=== PATIENT | male | born 1945 | race Caucasian/White ===

== ENCOUNTER 2017-01-20 01:47 | Inpatient (IN) | payer OTHER, MEDICARE ==
[~2017-01-20] VITALS: Ht 185.4 cm; Wt 89.4 kg
[~2017-01-20 01:47] MED LIST: FLUOXETINE HCL10 M2 PO; LISINOPRIL20 M1 PO
--- NOTE | 2017-01-20 10:56 | Admission Core Measures ---
Admission Meds I reviewed the following Meds: Current Medications Sig/Nicole Start time Last Medication Dose Stop Time Status Admin Acetaminophen 975 MG ONCE 01/20 NR (Tylenol) 01/20 2359 Cefazolin Sodium 2,000 MG ONCE 01/20 NR (Kefzol-Ancef Inj) 01/20 2359 Oxycodone HCl 10 MG ONCE 01/20 NR (Roxicodone) 01/20 2359 Acute Coronary Syndrome Inclusion Criteria ACS Diagnosis No Inpatient Core Measures LDL Reminder: If No, please order W/I first 24hr of stay Congestive Heart Failure Inclusion Criteria CHF Diagnosis No Cerebrovascular accident Inclusion Criteria CVA/TIA Diagnosis No Inpatient Core Measures Bedside Swallow Eval Reminder: If BSE failed, place ST order Antithrombotic Reminder: Order Antithrombotic Medication by end of day 2 Antithrombotic Reminder: Document Reason Antithrombotic Not ordered by end of day 2 AFIB/Flutter Reminder: If Present, add to problem list AFIB/Flutter Reminder: Order Anticoag Medication for pts with AFIB/Flutter Atherosclerosis Reminder: If Present, add to problem list LDL Reminder: If No, please order W/I first 24hr of stay PT Order Reminder: If No, please order Venous thromboembolism Inpatient Core Measures VTE Risk Factors: Age > 40, Surgery No [facility] VTE prophylaxis d/t No contraindications No VTE Pharm Prophylaxis d/t No contraindications Inclusion Criteria - Per Current guidelines, there needs to be overlap - treatment for the first 5 days of Warfarin therapy. - Parenteral Anticoagulation (IV or SC) needs to be - given along with Warfarin therapy. VTE Diagnosis No VTE Type NONE VTE Confirmed by (Test) NONE Problem List As ranked by this Provider includes Assessment & Plan 1. Unilateral primary osteoarthritis, right hip HOME MEDS Home Med List Fluoxetine HCl 10 MG CAPSULE 1 CAP PO DAILY ANXIETY (Reported) Lisinopril 20 MG TABLET 1 TAB PO DAILY HTN (Reported)
--- NOTE | 2017-01-20 11:01 | Patient Discharge Instructions ---
Discharge Instructions General Discharge Information You were seen/treated for: Right hip pain related to unilateral primary osteoarthritis You had these procedures: Right total hip replacement Watch for these problems: Increasing pain despite the use of pain medication. Increasing redness, warmth or swelling. Drainage of any type from incision. Inability to bear weight on operative leg. Persistent nausea and vomiting. Fever greater than 101.5 degrees. Do not soak the wound: Yes No bath, but you may shower: Yes Other wound care: Please keep wound clean and dry. No ointments or lotions of any type on or near incision at any time. No exceptions. Your dressing will be changed by your nurse on the second day after your surgery. Daily dry dressing changes are recommended each day thereafter. Do not soak your wound in a bath at any time until otherwise indicated by Dr. Jones. You may shower, please dry wound immediately after shower with a clean towel. Special Instructions: Aspirin: You are taking this medication to help prevent the development of blood clots. Please take with food to protect your stomach lining. Please take as directed. Constipation: Pain medication can be very constipating. Dr. Jones has recommended that you take Colace and miralax each day. You may discontinue this medication if you develop loose stool or diarrhea. If you wish to continue this medication, it is available over the counter. If you are unable to move your bowels after several days, if you are unable to pass gas and are developing bloating, nausea, or vomiting as a result, please contact your doctor. Diet Continue normal diet: Yes Recommended Diet: Regular Activity Full Activity/No Limits: No Activity Self Limited: Yes Pounds, do NOT lift more than: 10 Activity Limited to: Weight bear as tolerated Acute Coronary Syndrome Inclusion Criteria At DC or during hospital stay patient has or had the following: ACS DIAGNOSIS No Discharge Core Measures Meds if any: Prescribed or Continued at Discharge Meds if any: NOT Prescribed or Continued at Discharge Congestive Heart Failure Inclusion Criteria At DC or during hospital stay patient has or had the following: CHF DIAGNOSIS No Discharge Core Measures Meds if any: Prescribed or Continued at Discharge Meds if any: NOT Prescribed or Continued at Discharge Cerebrovascular accident Inclusion Criteria At DC or during hospital stay patient has or had the following: CVA/TIA Diagnosis No Discharge Core Measures Meds if any: Prescribed or Continued at Discharge Meds if any: NOT Prescribed or Continued at Discharge Venous thromboembolism Inclusion Criteria VTE Diagnosis No VTE Type NONE VTE Confirmed by (Test) NONE Discharge Core Measures - Per Current guidelines, there needs to be overlap - treatment for the first 5 days of Warfarin therapy. - If discharged on Warfarin prior to 5 days of - overlap therapy, the patient will need to be - assessed for post discharge needs including - *Post discharge parental anticoagulation - *Warfarin and/or parental anticoagulation education - *Follow up date to check INR post discharge At least 5 days overlap therapy as Inpatient No Meds if any: Prescribed or Continued at Discharge Note: Overlap Therapy is Warfarin and Anticoagulant Meds if any: NOT Prescribed or Continued at Discharge
--- NOTE | 2017-01-20 11:03 | Surgical Discharge Summary ---
Visit Information Visit Dates Admission Date: 01/20/17 Discharge Date: 01/24/17 History of Present Illness Chief Complaint: Right hip pain related to unilateral primary osteoarthritis Surgical History Pertinent Surgical History: non-contributory Review of Systems: See H&P Hospital Course Course Attending Physician: RENE AYON MD Primary Care Physician: MATTI STATON,[facility] Course: Patient was admitted to the hospital for an elective total joint replacement. The procedure was tolerated well and the patient was transferred to a general surgical floor. Diet was advanced and tolerated and the patient voided spontaneously. The patient was evaluated and treated by physical therapy. The patients post-operative course was complicated by confusion, anxiety, and delirium. He offered a history of alcohol abuse during his hospitalization, for which our CIWA protocol with a low dose ativan scale was initiated. The family reported the patient hasn't drank alcohol in over a year. They were concerned about the ativan making his confusion worse, since this apparently had happened during a previous hospitalization at [facility]. They believe the patient was recalling his history of alcohol use, that he had in his past over a year ago/ With this information, the ativan and ciwa monitoring was stopped. A bus driver/monitor was required briefly for unsafe attempts at getting out of bed during episodes of his confusion / delirium. was consulted for co- management of these issues, with recommendations followed. On POD #4 his confusion/delirium resolved and he was stable for discharge home with 24 hour home care services. He will follow up with Dr. Ayon as per usual. Complications: none Allergies: Coded Allergies: No Known Allergies (01/10/17) Disposition Summary Disposition Principal Diagnosis: Right hip unilateral primary osteoarthritis Additional Diagnosis: post-operative confusion / delirium / agitation, likely alcohol abuse related Discharge Disposition: home health services Discharge Instructions General Discharge Information Code Status: Full Code Patient's Diet: Regular, advance as tolerated Patient's Activity: WBAT, rolling walker assistance Follow-Up Instructions/Appts: Follow up with Dr. Ayon in 6 weeks from date of surgery. Please call his office to arrange and/or confirm this appointment. Medications at Discharge Discharge Medications: Continue taking these medications: Lisinopril (Lisinopril) 20 MG TABLET 1 Tablet ORAL DAILY Fluoxetine HCl (Fluoxetine HCl) 10 MG CAPSULE 1 Capsule ORAL DAILY Tamsulosin HCl (Flomax) 0.4 MG CAP.ER.24H 1 Capsule ORAL DAILY Start taking the following new medications: Aspirin (Ecotrin*) 325 MG TABLET.DR 1 Tablet ORAL TWICE DAILY Qty = 60 No Refills Docusate Sodium (Colace) 100 MG CAPSULE 1 Capsule ORAL TWICE DAILY Qty = 14 No Refills Instructions: DISCONTINUE USE IF YOU DEVELOP LOOSE STOOL OR DIARRHEA Polyethylene Glycol 3350 (Miralax) 17 GRAM POWD.PACK 1 Packet ORAL DAILY Qty = 7 No Refills Instructions: dissolve in water, DISCONTINUE USE IF YOU DEVELOP LOOSE STOOL OR DIARRHEA Acetaminophen (Tylenol Extra Strength) 500 MG TABLET 1 Tablet ORAL EVERY 4-6 HOURS NEEDED as needed for pain control Days = 14 No Refills Copies To: MATTI STATON,NEIL
[2017-01-20] MEDS ORDERED: MIRALAX17 G1 PO (11:05)
[2017-01-20] MEDS ORDERED: COLACE100 M1 PO (11:05)
[2017-01-20] MEDS ORDERED: MS CONTIN15 M2 PO (11:05)
[2017-01-20] MEDS ORDERED: DILAUDID2 M1 PO (11:05)
[2017-01-20] MEDS ORDERED: ASPIRIN EC325 M2 PO (11:05)
--- NOTE | 2017-01-20 14:58 | RADIOLOGY REPORT ---
EXAMINATION: XR HIP, RIGHT CLINICAL INFORMATION: Postoperative right total hip arthroplasty. COMPARISON: None TECHNIQUE: Two views of the right hip. FINDINGS: Immediate postoperative changes with metallic acetabular, femoral head, and proximal femoral components appear intact without evidence of immediate complication. IMPRESSION: Postoperative changes as noted.
--- NOTE | 2017-01-20 15:04 | Operative Report ---
Operative/Inv Procedure Report Surgery Date: 01/20/17 Name of Procedure: Right total hip replacement Pre-Operative Diagnosis: Primary right hip DJD Post-Operative Diagnosis: Same Estimated Blood Loss: 250 Surgeon/Embosser Apprentice: GABO STATON,RENE Sparks Anesthesia: general endotracheal tube Operative/Procedure Note Note: Description of Procedure: The patient was taken to the operating room and positively identified. After induction of general anesthesia and administration of appropriate pre-operative antibiotics, the patient was positioned supine on the operating room table and all bony prominences were well padded. After performing a surgical timeout, the right lower extremity was prepped and draped in the usual sterile fashion. A direct anterior approach was made to the right hip. The incision was carried sharply through superficial soft tissues to the level of the fascia. Meticulous hemostasis was maintained with Bovie electocautery. The fascia over the tensor fascia rebekah muscle was opened sharply and the interval between the TFL and the sartorius was entered bluntly taking care to stay lateral to the lateral femoral cutaneous nerve. Retractors were placed around the femoral neck and the pericapsular fat was identified. The ascending branches of the lateral femoral circumflex vessels were identified and carefully coagulated. The pericapsular fat and anterior capsule were then resected. A napkin ring osteotomy was performed and the femoral head was removed without difficulty. Attention was then turned to the acetabulum. After appropriate placement of retractors, the acetabulum was exposed. Soft tissue was cleaned from the acetabular margin and notch. Overhanging osteophytes were removed and the teardrop was exposed. The acetabulum was then sequentially reamed to accept a 64 mm Honorio Tritanium hemispherical cluster hole shell. This was impacted into place in the appropriate position and fitted with a 36 mm Trident X3 zero degree polyethylene insert. Attention was then turned to the femur. After performing the appropriate ligament releases, the proximal femur was exposed. It was then sequentially broached to accept a size 8 Honorio accolade 2 stem. This was trialed for leg length and stability. The trial component was removed and the final component was impacted into place. The trunnion was carefully cleaned and fit with a 36 mm, +0 Biolox delta ceramic femoral head. The hip was reduced and put through a full range of motion and found to be stable. The articular space was then irrigated with sterile saline. The periarticular soft tissues were infilitrated with Marcaine. The fascial layer was closed with interrupted #1 vicryl suture and the skin was re-approximated with interrupted 2 -0 vicryl. The skin was closed with a running 3-0 V-Lock suture. Steri-strips and a sterile dressing were applied. The patient was awakened and taken to the recovery room in satisfactory condition.
[2017-01-20 16:25] VITALS: BP 142/70
--- NOTE | 2017-01-20 16:25 | NUR ---
AT THIS TIME PT ARRIVED TO ROOM 201 FROM THE PACU, PT AMBULATED WITH PT FROM THE BED TO THE STRETCHER AX1 W/RW, PT A/O/VX3, ON RA, DENIES SOB, DENIES CP, VSS, DSG TO R HIP C/D/I, PT C/O 7 OUT OF 10 PAIN AT THIS TIME, MEDICATED WITH PRN PAIN MED, SKIN INTACT, DTV BETWEEN 1739 AND 1939, SAFETY MAINTAINED, NEEDS WITHIN REACH
--- NOTE | 2017-01-20 17:44 | PN- Orthopedic ---
Subjective Subjective: Patient reports feeling anxious about process in general and being here with out his family, does not have any specific concerns at the moment. States that he has a history of anxiety from time to time. He feels that his pain is controlled presently. He denies chest pain, shortness of breath and difficulty breathing. Denies nausea and vomitting. Is sitting up at bedside. Has not ambulated. Has not voided. Objective Vital Signs and I&Os Vital Signs Date Time Temp Pulse Resp B/P B/P Pulse O2 O2 Flow FiO2 Mean Ox Delivery Rate 01/20 1625 97.6 69 18 142/70 95 Room Air Physical Exam: General: Alert and oriented x3, no acute distress, sitting calmly on bed with feet dangling. Cardiac: RRR, s1s2 Pulmonary: CTA bilaterally ABD: non-tender, non-distended Extremities: Moves all extremities, distal sensation intact. Motor 5/5 in plantar and dorsi flexion. Skin warm and well perfused. DP pulses palpable bilaterally. Bilateral calves soft and non-tender. Surgical site: Right hip: Dressing dry and intact, thigh compartment soft, no surrounding ecchymosis or erythema noted. Assessment/Plan Assessment/Plan This is a 71 year old male, POD 0, s/p R THR. PMH significant for anxiety, depression and hypertension. Presently feeling anxious, states that he is nervous about the process in general and the fact that he is in a hospital without family at bedside. -Reassurance given regarding his overall safety while in hospital, presence of and access to staff that will be providing care around the clock, and progress made thus far in recovery process. Patient responded well, states he is feeling better. RN stayed in room and continued to reassure him that she will be checking on him frequently and provided thorough instructions regarding incentive spirometry to assist patient with deep breathing exerciese. -OOB, can wbat -ABX ppx: Cefazolin 2 grams for 2 additional doses -DVT ppx: ASA 325 bid -Diet: Regular, advance as tolerated -Bowel regimen: Colace bid, miralax daily -prn ativan to be ordered for anxietry -pain regimen to include dilaudid, morphine and iv tylenol -Will d/w Dr. Jones Core Measures/Miscellaneous Venous Thromboembolism VTE Risk Factors: Age > 40, Surgery VTE Contraindications: No Contraindications VTE Diagnosis: No VTE Type: NONE VTE Confirmed by (Test): NONE Beta Ellis Is Beta Ellis a Home Med? No Antibiotics Is Patient on Antibiotics? Yes If Yes: prophylaxis
[2017-01-20 18:43] VITALS: BP 142/72
--- NOTE | 2017-01-20 19:47 | NUR ---
NURSING NOTE; PT DTV BETWEEN 1739 AND 1939, PT UNABLE TO VOID AT THIS TIME, PER PT, "I DO NOT WANT TO BE STRAIGHT CATHED", SURGICAL PA #[id number] AWARE, NO FURTHER ORDERS AT THIS TIME, SAFETY MAINTAINED, NEEDS WITHIN REACH
[2017-01-20 22:57] VITALS: BP 132/61
--- NOTE | 2017-01-21 01:15 | NUR ---
LATE ENTRY NURSING NOTE: LEVI PREVIOUSLY A&OX3, AT THIS TIME PATIENT IS ALERT AND ORIENTED TO SELF ONLY. NO C/O PAIN ALTHOUGH PT IS ANXIOUS AT BASELINE. IV ATIVAN PREVIOUSLY GIVEN BY THIS RN AT 0000 PER EMAR. PT IS RESTING IN BED, NO ACUTE DISTRESS, NEEDS IN REACH AND SAFEY MAINTAINED. BED ALARM IN PLACE. SURGICAL LIBRADO NORIEGA MADE AWARE OF ABOVE; NO FURTHER ORDERS AT THIS TIME. WILL CONTINUE TO MONITOR.
[2017-01-21 01:20] VITALS: BP 152/68
[2017-01-21 04:42] VITALS: BP 150/62
[2017-01-21] MEDS ORDERED: FLOMAX0.4 M1 PO (07:12)
--- NOTE | 2017-01-21 07:12 | PN- Orthopedic ---
Subjective Subjective: The patient is seen this morning postoperatively day #1. He reports that his pain is under adequate control of some complaints the current time. Per nursing staff he needed to be straight cathed last night and has yet to void this morning. He also appeared somewhat confused earlier this morning but currently seems appropriate. The patient also takes Flomax at home which will be reordered this morning. Objective Vital Signs and I&Os Vital Signs Date Time Temp Pulse Resp B/P B/P Pulse O2 O2 Flow FiO2 Mean Ox Delivery Rate 01/21 0442 98.1 78 20 150/62 95 Room Air 01/21 0120 98.2 65 22 152/68 94 Room Air 01/20 2257 98.4 68 18 132/61 91 Room Air 01/20 1843 98.5 79 18 142/72 92 Room Air 01/20 1625 97.6 69 18 142/70 95 Room Air Intake & Output 01/21 0800 / 0000 07/10 1600 / 0800 07 0000 07/09 1600 Intake Total 1000 Output Total Balance 1000 Intake, IV 600 Intake, Oral 400 Patient 197 lb Weight Weight Reported by Patient Measurement Method Physical Exam: Gen.: Alert and in no obvious distress Skin: Warm and dry Abdomen: Soft, nontender, nondistended, bowel sounds positive. Extremities: Bilateral extremities are warm without calf tenderness or significant edema. Gross motor and sensory were intact. Right hip surgical dressing is clean, dry, and intact. Assessment/Plan Assessment/Plan Assessment: 71-year-old male status post right hip total arthroplasty postoperative day 1. The patient is progressing as expected and his pain is under adequate control. He is having issues voiding and his Flomax will be restarted today. Plan: Restart Flomax and monitor for void Strict I's and O's Out of bed with physical therapy Follow-up morning laboratory studies Keep IV fluids until void Continue current pain regiment GI and DVT prophylaxis Core Measures/Miscellaneous Venous Thromboembolism VTE Risk Factors: Age > 40, Surgery VTE Contraindications: No Contraindications VTE Diagnosis: No VTE Type: NONE VTE Confirmed by (Test): NONE Beta Ellis Is Beta Ellis a Home Med? No Antibiotics Is Patient on Antibiotics? No
--- NOTE | 2017-01-21 07:29 | PN- Student ---
PAWAN STRAUSS 01/21/17 0721: Subjective Subjective: Patient currently trying to void. Is comfortable otherwise. No acute events overnight. Denies pain, n/v, SOB, chest pain, headaches or dizziness. Anxiety has decreased significantly since yesterday. Has been OOB to bathroom since last night but no bm and not able to void yet. Objective Objective: Vital Signs Result Date Time Pulse Ox 95 01/21 442 B/P 150/62 01/21 442 O2 Delivery Room Air 01/21 442 Temp 98.1 01/21 442 Pulse 78 01/21 044 Resp 20 01/21 442 Intake & Output 01/21 0000 01/20 1600 01/20 0800 Intake Total 1000 Output Total Balance 1000 Intake, IV 600 Intake, Oral 400 Patient 197 lb Weight Weight Reported by Patient Measurement Method General: awake, alert, oriented, NAD Lungs: CTAB, no wheeze/rhonchi/rales Heart: S1 S2, RRR, no MRG Abdomen: soft, non-distended, normoactive bowel sounds, non-tender Extremities: mild tremor in hands on moving, gross motor/sensory function in tact, palpable distal pulses 2+, right hip dressing clean, dry and intact, mild ttp, no peripheral edema, no calf tenderness bilaterally Assessment/Plan Assessment: 71 y/o male POD #1 right total hip arthroplasty. Progressing as expected with adequately controlled pain. Still unable to void. Plan: Diet: regular Pain: continue current pain regimen GI and DVT ppx OOB and ambulate Monitor ability to void, consider tamsulosin Incentive Spirometry Strict I's and O's Will discuss with attending SUSY ESPARZA 01/21/17 0837: Assessment/Plan Plan: I have seen and examined the above patient's please refer to the previous note
[2017-01-21 08:32] LABS: ABSOLUTE BASOPHIL COUNT 0 /CUMM (0.0-0.2); ABSOLUTE EOSINOPHIL COUNT 0 /CUMM (0.0-0.7); ABSOLUTE GRANULOCYTE CT 10.4 /CUMM (1.4-6.5); ABSOLUTE LYMPH COUNT 0.8 /CUMM (1.2-3.4); ABSOLUTE MONOCYTE COUNT 1.3 /CUMM (0.10-0.60); BASOPHIL % 0.1 % (0.0-2.0); EOSINOPHIL % 0 % (0-5); GRANULOCYTE % 82.6 % (42.2-75.2); HEMATOCRIT 35.9 % (42-52); MEAN CORPUSCULAR HGB 28.7 PG (27.0-31.0); MEAN CORPUSCULAR HGB CONC 33.8 G/DL (33.0-37.0); MEAN CORPUSCULAR VOLUME 84.7 FL (80.0-94.0); MEAN PLATELET VOLUME 7.4 FL (7.4-10.4); PLATELET COUNT 197 /CUMM (130-400); RBC DISTRIBUTION WIDTH 15.1 % (11.5-14.5); RED BLOOD CELL CT 4.24 /CUMM (4.70-6.10); WHITE BLOOD CELL COUNT 12.6 /CUMM (4.8-10.8)
--- NOTE | 2017-01-21 09:10 | Cons- Medical ---
General Information and HPI Consulting Request Date of Consult: 01/21/17 Requested By: RENE AYON MD Reason for Consult: Medical comanagement Source of Information: patient, old records Exam Limitations: confusion History of Present Illness: 71-year-old male with history of hypertension, acid reflux, BPH is status post right hip total replacement postoperative day 1. From surgical point of view he has done well however on evaluation this morning patient appears delirious. Postoperatively he has only received single dose of Dilaudid about 4 mg at 4 PM yesterday. Allergies/Medications Allergies: Coded Allergies: No Known Allergies (01/10/17) Home Med List: Aspirin (Ecotrin*) 325 MG TABLET.DR 1 TAB PO BID ANTICOAGULATION Docusate Sodium (Colace) 100 MG CAPSULE 1 CAP PO BID CONSITPATION DISCONTINUE USE IF YOU DEVELOP LOOSE STOOL OR DIARRHEA Fluoxetine HCl 10 MG CAPSULE 1 CAP PO DAILY ANXIETY (Reported) Hydromorphone HCl (Dilaudid) 2 MG TABLET 1-2 TAB PO Q4-6 PRN PRN PAIN Lisinopril 20 MG TABLET 1 TAB PO DAILY HTN (Reported) Morphine Sulfate (Ms Contin) 15 MG TABLET.ER 1 TAB PO BID PAIN Polyethylene Glycol 3350 (Miralax) 17 GRAM POWD.PACK 1 PAC PO DAILY CONSTIPATION dissolve in water, DISCONTINUE USE IF YOU DEVELOP LOOSE STOOL OR DIARRHEA Tamsulosin HCl (Flomax) 0.4 MG CAP.ER.24H 1 CAP PO DAILY prostate (Reported) Current Medications: Current Medications Sig/Nicole Start time Last Medication Dose Route Stop Time Status Admin Acetaminophen 1,000 MG Q6 01/20 1800 AC 01/21 IV 01/21 1201 0531 Acetaminophen 0 .STK-MED ONE 01/20 1023 DC PO Acetaminophen 975 MG ONCE 01/20 0000 DC PO 01/20 2359 Aspirin 325 MG BID 01/20 2200 AC 01/21 PO 0901 Cefazolin Sodium 2 GM Q8H 01/20 2015 DC 01/21 N/A 1 UNIT IV 01/21 0444 0447 Cefazolin Sodium 2,000 MG ONCE 01/20 0000 DC IV 01/20 2359 Docusate Sodium 100 MG BID 01/20 2200 AC 01/21 PO 0901 Fentanyl Citrate 250 MCG .STK-MED ONE 01/20 1215 DC IM 01/20 1216 Fentanyl Citrate 100 MCG .STK-MED ONE 01/20 1120 DC IM 01/20 1121 Fluoxetine HCl 10 MG DAILY 01/21 1000 DC PO Fluoxetine HCl 10 MG DAILY 01/21 1000 AC 01/21 PO 0900 Hydromorphone HCl 2 MG Q4P PRN 01/20 1630 DC PO Hydromorphone HCl 4 MG Q4P PRN 01/20 1630 DC 01/20 PO 1649 Hydromorphone HCl 2 MG .STK-MED ONE 01/20 1551 DC IM 01/20 1552 Hydromorphone HCl 2 MG .STK-MED ONE 01/20 1524 DC IM 01/20 1525 Hydromorphone HCl 2 MG .STK-MED ONE 01/20 1438 DC IM 01/20 1439 Hydromorphone HCl 2 MG .STK-MED ONE 01/20 1415 DC IM 01/20 1416 Hydromorphone HCl 2 MG .STK-MED ONE 01/20 1216 DC IM 01/20 1217 Ketorolac 15 MG Q8P PRN 01/20 1630 AC Tromethamine IV 01/23 1625 Lisinopril 20 MG DAILY 01/21 1000 DC PO Lisinopril 20 MG DAILY 01/21 1000 AC 01/21 PO 0900 Lorazepam 1 MG Q4P PRN 01/20 1745 DC 01/20 IV 2339 Meperidine HCl 50 MG .STK-MED ONE 01/20 1424 DC IM 01/20 1425 Midazolam HCl 2 MG .STK-MED ONE 01/20 1120 DC IM 01/20 1121 Morphine Sulfate 2 MG Q2P PRN 01/20 1630 AC IV Omeprazole 40 MG DAILY AC 01/21 0700 AC 01/21 PO 0531 Ondansetron HCl 4 MG Q6P PRN 01/20 1630 AC IV Oxycodone HCl 5 MG Q6P PRN 01/21 0900 AC PO Oxycodone HCl 0 .STK-MED ONE 01/20 1023 DC PO Oxycodone HCl 10 MG ONCE 01/20 0000 DC PO 01/20 2359 Polyethylene Glycol 17 GM DAILY 01/21 1000 AC 01/21 PO 0901 Promethazine HCl 12.5 MG Q6P PRN 01/20 1630 AC IV 01/27 1214 Sodium Chloride 1,000 ML .[id number] 01/20 1630 AC 01/21 IV 0859 Tamsulosin HCl 0.4 MG DAILY 01/21 0715 01/21 PO 0900 Review of Systems Review of Systems Constitutional: Denies: no symptoms, see HPI, chills, diaphoresis, fever, malaise, weakness, unexplained weight loss. Cardiovascular: Denies: no symptoms, see HPI, chest pain, edema, orthopena, palpitations, peripheral edema, syncope. Respiratory: Denies: no symptoms, see HPI, cough, hemoptysis, orthopnea, short of breath, sputum production, stridor, wheezing. Genitourinary: Denies: no symptoms, see HPI, discharge, dysuria, frequency, hematuria, hesitation, nocturia, pain, urgency. Musculoskeletal: Denies: no symptoms, see HPI, back pain, gout, joint pain, joint swelling, muscle pain, muscle stiffness, neck pain. Skin: Denies: no symptoms, see HPI, cysts, change in skin color, change in hair/nails, dryness, erythema, jaundice, lesions, lymphangitis, lumps, moles, rash. Past History Medical History Blood Transfusion Hx: No Neurological: NONE EENT: NONE Cardiovascular: hypertension Respiratory: NONE Gastrointestinal: NONE Hepatic: NONE Renal: NONE Musculoskeletal: osteoarthritis Psychiatric: anxiety Endocrine: NONE Blood Disorders: NONE Cancer(s): NONE FINE ARTS MODEL/Reproductive: NONE Surgical History Surgical History: BACK SURGERY Psychosocial History Where Do You Live? Home Services at Home: None Smoking Status: Former Smoker Exam & Diagnostic Data Last 24 Hrs of Vital Signs/I&O Vital Signs Date Time Temp Pulse Resp B/P B/P Pulse O2 O2 Flow FiO2 Mean Ox Delivery Rate 01/21 900 71 170/70 01/21 0900 71 170/70 01/21 0442 98.1 78 20 150/62 95 Room Air 01/21 0120 98.2 65 22 152/68 94 Room Air 01/20 2257 98.4 68 18 132/61 91 Room Air 01/20 1843 98.5 79 18 142/72 92 Room Air 01/20 1625 97.6 69 18 142/70 95 Room Air Intake & Output 01/21 1600 01/21 0800 01/21 0000 Intake Total 890 1000 Output Total 700 Balance 190 1000 Intake, IV 650 600 Intake, Oral 240 400 Number 0 Bowel Movements Output, Urine 700 Patient 89.358 kg Weight Weight Reported by Patient Measurement Method Physical Exam General Appearance: confused Respiratory: normal breath sounds, chest non-tender Cardiovascular: regular rate/rhythm Gastrointestinal: normal bowel sounds, soft, non-tender Extremities: no edema Last 24 Hrs of Labs/[place]: Laboratory Tests 01/21/17 0605: Anion Gap 11, Estimated GFR > 60, BUN/Creatinine Ratio 22.0, CBC w Diff NO MAN DIFF REQ, RBC 4.24 L, MCV 84.7, MCH 28.7, RDW 15.1 H, MPV 7.4, Gran % 82.6 H, Lymphocytes % 6.6 L, Monocytes % 10.7 H, Eosinophils % 0, Basophils % 0.1, Absolute Granulocytes 10.4 H, Absolute Lymphocytes 0.8 L, Absolute Monocytes 1.3 H, Absolute Eosinophils 0, Absolute Basophils 0, PUBS MCHC 33.8 Assessment/Plan Assessment/Plan 71-year-old male with history of hypertension, acid reflux, BPH is status post right hip total replacement postoperative day 1. Patient is having delirium postop this may be secondary to postop delirium secondary to age versus opioids versus urinary obstruction. Would hold off on the discharge today and avoid narcotics. Would also get physical therapy evaluation to decide disposition. Plan Postop delirium Avoid delirium triggers Hold narcotics and observe Observe for urinary obstruction given patient has history of BPH Get PT evaluation Continue other home meds Consider holding off discharge until mental status has improved DVT prophylaxis as per surgical team Problem List: 1. Unilateral primary osteoarthritis, right hip Copies To: GABO STATON,RENE Consult Acknowledgment - Thank you for your consult request.
[2017-01-21 09:44] VITALS: BP 170/70
[2017-01-21 14:39] VITALS: BP 142/64
[2017-01-21 21:34] VITALS: BP 136/62
--- NOTE | 2017-01-22 02:41 | NUR ---
NURSING NOTE LATE ENTRY: AT 2121-3228 PT BECAME COMBATIVE AND AGITATED TOWARDS STAFF AND ATTEMPTED TO CLIMB OUT OF BED W/O ASSIST. PT STATES "THEY ARE HOLDING ME HERE AGAINST MY WILL". PT INFORMED THIS RN HE WANTS TO GO HOME AND TO CALL AN UBER. PT UPSET BECAUSE HIS PHONE IS NOT WORKING AND HE WANTS TO CALL HIS SON. THIS RN HELPED PT CALL HIS SON ON LANDLINE IN ROOM. PT REORIENTED. SURGICAL PA MADE AWARE AND CAME INTO ASSESS PT. PRN ATIVAN RE-ORDERED. THIS RN, STEVEDORE DOCK, AND NURSING LADLE POURER HELPED PT GET BACK INTO BED SAFELY. PT ASKING FOR SOMETING TO HELP HIM SLEEP. SLEEP MEDS GIVEN. PT NO LONGER AGITATED. PT IS RESTING COMFORTABLY AT THIS TIME. SAFETY MAINTAINED, BED ALARM IN PLACE, NEEDS WITHIN REACH. WILL CONTINUE TO MONITOR. MONITOR.
[2017-01-22 06:44] VITALS: BP 188/82
--- NOTE | 2017-01-22 07:14 | PN- Orthopedic ---
See Addendum Subjective Subjective: POD#2 S/P RIGHT TRAVIS CONFUSED LAST PM/NIGHT LESS NOW, ALERT TO PERSON/PLACE YAMILETHS CP, SOB, NO N+V TOLERATING DIET Objective Vital Signs and I&Os Vital Signs Date Time Temp Pulse Resp B/P B/P Pulse O2 O2 Flow FiO2 Mean Ox Delivery Rate 01/22 0644 98.6 80 20 188/82 94 01/21 2134 97.6 70 18 136/62 96 01/21 1439 98.0 50 20 142/64 96 Room Air 01/21 1328 Room Air Room Air 01/21 0944 71 170/70 01/21 0900 71 170/70 01/21 0900 71 170/70 Intake & Output 01/22 0800 01/22 0000 01/21 1600 01/21 0800 01/21 0000 01/20 1600 Intake Total 565 2400 890 1000 Output Total 100 625 625 700 Balance -100 -60 0104 481 6561 Intake, IV 225 1200 650 600 Intake, Oral 340 1200 240 400 Number 0 0 Bowel Movements Output, Urine 100 625 625 700 Patient 197 lb Weight Weight Reported by Patient Measurement Method Physical Exam: CV: RRR LUNGS: CLEAR ABD: SOFT, +BS EXT: DRSG CHANGED, WOUND C/D/I DISTAL CMS INTACT NO CALF TENDERNESS Assessment/Plan Assessment/Plan ORTHO STABLE OBSERVE FOR DELERIUM PLAN CONT OOB WITH PT TITRATE PAIN MEDS MAY NEED REHAB PLACEMENT Core Measures/Miscellaneous Venous Thromboembolism VTE Risk Factors: Age > 40, Surgery VTE Contraindications: No Contraindications VTE Diagnosis: No VTE Type: NONE VTE Confirmed by (Test): NONE Beta Ellis Is Beta Ellis a Home Med? No Antibiotics Is Patient on Antibiotics? No
--- NOTE | 2017-01-22 09:06 | NUR ---
PT VOIDED 100MLS. BLADDER SCAN SHOWED 27ML POST VOID RESIDUAL.
--- NOTE | 2017-01-22 09:59 | NUR ---
PT DEMONSTRATES INCRESED AGITATION, IS SWEARING, RASING HIS VOICE AND DEMANDING TO LEAVE DESPITE REORIENTATION THAT HE IS IN A HOSPITAL AND NEEDS TO STAY. HALDOL 0.5MG IM INJ GIVEN. SAFETY MONITOR IS IN ROOM WITH PATIENT AT THIS TIME. WILL CONTINUE TO MONITOR.
--- NOTE | 2017-01-22 10:14 | PN- Medicine Consult ---
See Addendum Assessment/Plan Assessment/Plan Assessment: 71-year-old male with history of hypertension, acid reflux, BPH is status post right hip total replacement postoperative day 2. Patient is having delirium postop. He is showing signs of alcohol withdrawal. Patient admits drinking at least 2-3 large drinks of whiskey every day. Will place patient on CIWA protocol with low-dose Ativan. We'll also recommend using Zyprexa as needed only for severe agitation. Plan: Plan Place patient on CIWA protocol Low-dose Ativan as per CIWA protocol Zyprexa 5 mg every 12 hours when necessary only for severe agitation Avoid Ambien and narcotics Avoid delirium triggers Get PT evaluation Continue other home meds Consider holding off discharge until mental status has improved DVT prophylaxis as per surgical team Problem List: 1. Unilateral primary osteoarthritis, right hip 2. Delirium Subjective Subjective: Patient on evaluation is confused. He is able to answer some questions appropriately. Review of Systems Constitutional: Denies: no symptoms, see HPI, chills, diaphoresis, fever, malaise, weakness, unexplained weight loss. Cardiovascular: Denies: no symptoms, see HPI, chest pain, edema, orthopena, palpitations, peripheral edema, syncope. Respiratory: Denies: no symptoms, see HPI, cough, hemoptysis, orthopnea, short of breath, sputum production, stridor, wheezing. Gastrointestinal: Denies: no symptoms, see HPI, abdominal pain, bloating, constipation, diarrhea, distention, bowel incontinence, melena, nausea, bloody stool, changes in stool, vomiting, steatorrhea. Genitourinary: Denies: no symptoms, see HPI, discharge, dysuria, frequency, hematuria, hesitation, nocturia, pain, urgency. Neurological/Psychological: Reports: confusion. Objective Last 24 Hrs of Vital Signs/I&O Vital Signs Date Time Temp Pulse Resp B/P B/P Pulse O2 O2 Flow FiO2 Mean Ox Delivery Rate 01/22 0816 188/80 01/22 0644 98.6 80 20 188/82 94 01/21 2134 97.6 70 18 136/62 96 01/21 1439 98.0 50 20 142/64 96 Room Air 01/21 1328 Room Air Room Air Intake & Output 01/22 1600 01/22 0800 01/22 0000 Intake Total 565 Output Total 100 200 625 Balance -100 -200 -60 Intake, IV 225 Intake, Oral 340 Output, Urine 100 200 625 Physical Exam General Appearance: awake, anxious Cardiovascular: regular rate/rhythm Respiratory: normal breath sounds, chest non-tender Abdomen: soft, non-tender Extremities: normal inspection Neurologic/Psychiatric: awake Current Medications: Current Medications Sig/Nicole Start time Last Medication Dose Route Stop Time Status Admin Acetaminophen 1,000 MG Q6H 01/22 0815 AC 01/22 N/A 1 UNIT IV 01/23 0229 0826 Acetaminophen 1,000 MG Q6 01/20 1800 DC 01/21 IV 01/21 1201 1146 Aspirin 325 MG BID 01/20 2200 AC 01/22 PO 0827 Docusate Sodium 100 MG BID 01/20 2200 AC 01/22 PO 0827 Fluoxetine HCl 10 MG DAILY 01/21 1000 AC 01/22 PO 0827 Folic Acid 1 MG DAILY 01/22 1000 AC PO Haloperidol 0.5 MG Q8P PRN 01/22 0830 AC 01/22 IM 0952 Ketorolac 15 MG Q8P PRN 01/20 1630 AC Tromethamine IV 01/23 1625 Lisinopril 20 MG DAILY 01/21 1000 AC 01/22 PO 0828 Lorazepam 0 Q1P PRN 01/22 1000 AC IV Lorazepam 1 MG Q4P PRN 01/22 0015 DC 01/22 IV 0735 Morphine Sulfate 2 MG Q2P PRN 01/20 1630 DC IV Multivitamins 1 TAB DAILY 01/22 1000 AC PO Olanzapine 5 MG BID PRN 01/22 1000 AC PO Omeprazole 40 MG DAILY AC 01/21 0700 AC 01/22 PO 0548 Ondansetron HCl 4 MG Q6P PRN 01/20 1630 AC IV Oxycodone HCl 5 MG Q6-PRN PRN 01/22 0830 DC PO Oxycodone HCl 5 MG Q6P PRN 01/21 0900 DC 01/21 PO 2044 Polyethylene Glycol 17 GM DAILY 01/21 1000 AC 01/22 PO 0827 Promethazine HCl 12.5 MG Q6P PRN 01/20 1630 AC IV 01/27 1214 Sodium Chloride 1,000 ML .[id number] 01/20 1630 DC 01/21 IV 2045 Tamsulosin HCl 0.4 MG DAILY 01/21 0715 AC 01/22 PO 0816 Thiamine HCl 100 MG DAILY 01/22 1000 AC PO Zolpidem Tartrate 5 MG AT BEDTIME 01/22 2200 DC 01/22 PO 0109 Results Last 24 Hrs Lab/[place] Results: none
--- NOTE | 2017-01-22 10:30 | NUR ---
Physical Therapy: Attempted to see pt this morning for treatment. Pt at this time and overnight very confused and slighlty agitated. Just received IM haldol and was assisted x3 back to bed. Will cx treatment this morning and follow up this afternoon. May need to change d/c plan to STR- will follow up on this as well. Thank you.
[2017-01-22] MEDS ORDERED: TYLENOL EXTRA500 M2 PO (11:03)
--- NOTE | 2017-01-22 13:47 | NUR ---
PT STATES, "I'VE NEVER FELT MORE SCARED BEFORE IN MY LIFE". HE BELIEVES HE'S BEING HELD HOSTAGE. HE APPEARS FLUSHED, IS CLENCHING HIS FISTS AND COVERING HIS FACE IN DISTRESS WHEN TOLD HE CAN'T LEAVE THE HOSPITAL. HE SAID, "YOU MIGHT HAVE A SUICIDAL PATIENT ON YOUR HANDS". HE IS FREQUENTLY REORIENTED AND REASSURED THAT HE IS SAFE. BP IS 182/78. ZYPREXA 5MG WAS GIVEN. SITTER AT BEDSIDE. WILL CONTINUE TO MONITOR.
[2017-01-22 14:12] VITALS: BP 182/78
--- NOTE | 2017-01-22 16:02 | NUR ---
Physical Therapy: Attempted to see pt this afternoon. Pt sleeping soundly in bed at the moment. per MSTs pt continues to be very confused and anxious. Pt's BP is currently elevated. Will cx treatmnet at this time and follow up tomorrow as appropriate. Thank you.
[2017-01-23 06:25] VITALS: BP 132/78
--- NOTE | 2017-01-23 08:37 | NUR ---
PATIENT REFUSED HIS 40MG OMEPRAZOLE. THE INCOMING RN WAS MADE AWARE.
[2017-01-23 09:20] LABS: ABSOLUTE BASOPHIL COUNT 0 /CUMM (0.0-0.2); ABSOLUTE EOSINOPHIL COUNT 0.1 /CUMM (0.0-0.7); ABSOLUTE GRANULOCYTE CT 4.3 /CUMM (1.4-6.5); ABSOLUTE LYMPH COUNT 1.4 /CUMM (1.2-3.4); ABSOLUTE MONOCYTE COUNT 0.9 /CUMM (0.10-0.60); BASOPHIL % 0.3 % (0.0-2.0); EOSINOPHIL % 1.4 % (0-5); GRANULOCYTE % 64.5 % (42.2-75.2); MEAN CORPUSCULAR HGB 28.2 PG (27.0-31.0); MEAN CORPUSCULAR HGB CONC 33.6 G/DL (33.0-37.0); MEAN CORPUSCULAR VOLUME 83.8 FL (80.0-94.0); MEAN PLATELET VOLUME 7.4 FL (7.4-10.4); PLATELET COUNT 170 /CUMM (130-400); RBC DISTRIBUTION WIDTH 14.3 % (11.5-14.5); RED BLOOD CELL CT 3.94 /CUMM (4.70-6.10); WHITE BLOOD CELL COUNT 6.7 /CUMM (4.8-10.8)
--- NOTE | 2017-01-23 09:42 | PN- Medicine Consult ---
Assessment/Plan Assessment/Plan Assessment: 71-year-old male with history of hypertension, acid reflux, BPH is status post right hip total replacement postoperative day 3. On evaluation this morning he appears more alert and oriented. He however lethargic secondary to receiving Zyprexa and Haldol yesterday. It appears delirium is resolving. At this point we'll hold off on Zyprexa and Haldol. Also will avoid sedatives observe for next 24 hours. Plan: Plan Discontinue Zyprexa and Haldol Avoid Ambien and narcotics Avoid delirium triggers Observe for next 24 hours Continue other home meds DVT prophylaxis as per surgical team Current Medications Sig/Nicole Start time Last Medication Dose Route Stop Time Status Admin Acetaminophen 1,000 MG Q6H 01/22 08 DC 01/23 N/A 1 UNIT IV 01/23 0229 0125 Aspirin 325 MG BID 01/20 2200 AC 01/22 PO 2203 Docusate Sodium 100 MG BID 01/20 2200 AC 01/22 PO 2204 Fluoxetine HCl 10 MG DAILY 01/21 1000 AC 01/22 PO 0816 Folic Acid 1 MG DAILY 01/22 1000 AC 01/22 PO 1334 Haloperidol 0.5 MG Q8P PRN 01/22 0830 AC 01/22 IM 1910 Ketorolac 15 MG Q8P PRN 01/20 1630 AC 01/22 Tromethamine IV 01/23 1625 2155 Lisinopril 20 MG DAILY 01/21 1000 AC 01/22 PO 0828 Lorazepam 0 Q1P PRN 01/22 1000 DC IV Multivitamins 1 TAB DAILY 01/22 1000 AC 01/22 PO 1334 Olanzapine 5 MG BID PRN 01/22 1000 AC 01/22 PO 2154 Omeprazole 40 MG DAILY AC 01/21 0700 AC 01/22 PO 0548 Ondansetron HCl 4 MG Q6P PRN 01/20 1630 AC IV Polyethylene Glycol 17 GM DAILY 01/21 1000 AC 01/22 PO 0827 Promethazine HCl 12.5 MG Q6P PRN 01/20 1630 AC IV 01/27 1214 Tamsulosin HCl 0.4 MG DAILY 01/21 0715 AC 01/22 PO 0816 Thiamine HCl 100 MG DAILY 01/22 1000 AC 01/22 PO 1334 Zolpidem Tartrate 5 MG AT BEDTIME 01/22 2200 DC 01/22 PO 0109 Laboratory Tests 01/23 0810 Chemistry Sodium (137 - 145 mmol/L) 141 Potassium (3.5 - 5.1 mmol/L) 4.3 Chloride (98 - 107 mmol/L) 104 Carbon Dioxide (22 - 30 mmol/L) 28 Anion Gap (5 - 16) 10 BUN (9 - 20 mg/dL) 18 Creatinine (0.7 - 1.2 mg/dL) 1.1 Estimated GFR (>60 ml/min) > 60 BUN/Creatinine Ratio (7 - 25 %) 16.4 Hematology CBC w Diff NO MAN DIFF REQ WBC (4.8 - 10.8 /CUMM) 6.7 RBC (4.70 - 6.10 /CUMM) 3.94 L Hgb (14.0 - 18.0 G/DL) 11.1 L Hct (42 - 52 %) 33.0 L MCV (80.0 - 94.0 FL) 83.8 MCH (27.0 - 31.0 PG) 28.2 RDW (11.5 - 14.5 %) 14.3 Plt Count (130 - 400 /CUMM) 170 MPV (7.4 - 10.4 FL) 7.4 Gran % (42.2 - 75.2 %) 64.5 Lymphocytes % (20.5 - 51.1 %) 20.6 Monocytes % (1.7 - 9.3 %) 13.2 H Eosinophils % (0 - 5 %) 1.4 Basophils % (0.0 - 2.0 %) 0.3 Absolute Granulocytes (1.4 - 6.5 /CUMM) 4.3 Absolute Lymphocytes (1.2 - 3.4 /CUMM) 1.4 Absolute Monocytes (0.10 - 0.60 /CUMM) 0.9 H Absolute Eosinophils (0.0 - 0.7 /CUMM) 0.1 Absolute Basophils (0.0 - 0.2 /CUMM) 0 PUBS MCHC (33.0 - 37.0 G/DL) 33.6 Vital Signs Date Time Temp Pulse Resp B/P B/P Pulse O2 O2 Flow FiO2 Mean Ox Delivery Rate 01/23 0625 97.9 72 20 132/78 98 Room Air 01/22 2148 98.3 85 19 95 Room Air 01/22 1412 98.5 68 20 182/78 96 Room Air Problem List: 1. Delirium 2. Unilateral primary osteoarthritis, right hip Subjective Subjective: Patient is lethargic however he is answering questions appropriately by dates and place. Review of Systems Constitutional: Denies: no symptoms, see HPI, chills, diaphoresis, fever, malaise, weakness, unexplained weight loss. Cardiovascular: Denies: no symptoms, see HPI, chest pain, edema, orthopena, palpitations, peripheral edema, syncope. Respiratory: Denies: no symptoms, see HPI, cough, hemoptysis, orthopnea, short of breath, sputum production, stridor, wheezing. Gastrointestinal: Denies: no symptoms, see HPI, abdominal pain, bloating, constipation, diarrhea, distention, bowel incontinence, melena, nausea, bloody stool, changes in stool, vomiting, steatorrhea. Musculoskeletal: Denies: no symptoms, see HPI, back pain, gout, joint pain, joint swelling, muscle pain, muscle stiffness, neck pain. Neurological/Psychological: Reports: anxiety. Denies: confusion. Objective Last 24 Hrs of Vital Signs/I&O Vital Signs Date Time Temp Pulse Resp B/P B/P Pulse O2 O2 Flow FiO2 Mean Ox Delivery Rate 01/23 0625 97.9 72 20 132/78 98 Room Air 01/22 2148 98.3 85 19 95 Room Air 01/22 1412 98.5 68 20 182/78 96 Room Air Intake & Output 01/23 1600 01/23 0800 01/23 0000 Intake Total 100 130 Output Total 775 Balance 100 -645 Intake, IV 100 10 Intake, Oral 120 Output, Urine 775 Physical Exam General Appearance: alert, sedated Cardiovascular: regular rate/rhythm Respiratory: normal breath sounds, chest non-tender, no respiratory distress Abdomen: soft, non-tender Extremities: no edema Current Medications: Current Medications Sig/Nicole Start time Last Medication Dose Route Stop Time Status Admin Acetaminophen 1,000 MG Q6H 01/22 0815 DC 01/23 N/A 1 UNIT IV 01/23 229 0125 Aspirin 325 MG BID 01/20 2200 AC 01/22 PO 220 Docusate Sodium 100 MG BID 01/20 2200 AC 01/22 PO 2204 Fluoxetine HCl 10 MG DAILY 01/21 1000 AC 01/22 PO 0816 Folic Acid 1 MG DAILY 01/22 1000 AC 01/22 PO 1334 Haloperidol 0.5 MG Q8P PRN 01/22 0830 AC 01/22 IM 1910 Ketorolac 15 MG Q8P PRN 01/20 1630 AC 01/22 Tromethamine IV 01/23 1625 2155 Lisinopril 20 MG DAILY 01/21 1000 AC 01/22 PO 0828 Lorazepam 0 Q1P PRN 01/22 1000 DC IV Multivitamins 1 TAB DAILY 01/22 1000 AC 01/22 PO 1334 Olanzapine 5 MG BID PRN 01/22 1000 AC 01/22 PO 2154 Omeprazole 40 MG DAILY AC 01/21 0700 AC 01/22 PO 0548 Ondansetron HCl 4 MG Q6P PRN 01/20 1630 AC IV Polyethylene Glycol 17 GM DAILY 01/21 1000 AC 01/22 PO 0827 Promethazine HCl 12.5 MG Q6P PRN 01/20 1630 AC IV 01/27 1214 Tamsulosin HCl 0.4 MG DAILY 01/21 0715 AC 01/22 PO 0816 Thiamine HCl 100 MG DAILY 01/22 1000 AC 01/22 PO 1334 Zolpidem Tartrate 5 MG AT BEDTIME 01/22 2200 DC 01/22 PO 0109 Results Last 24 Hrs Lab/[place] Results: Laboratory Tests 01/23/17 0810: Anion Gap 10, Estimated GFR > 60, BUN/Creatinine Ratio 16.4, CBC w Diff NO MAN DIFF REQ, RBC 3.94 L, MCV 83.8, MCH 28.2, RDW 14.3, MPV 7.4, Gran % 64.5, Lymphocytes % 20.6, Monocytes % 13.2 H, Eosinophils % 1.4, Basophils % 0.3, Absolute Granulocytes 4.3, Absolute Lymphocytes 1.4, Absolute Monocytes 0.9 H, Absolute Eosinophils 0.1, Absolute Basophils 0, PUBS MCHC 33.6
--- NOTE | 2017-01-23 10:23 | NUR ---
THIS RN IN ROOM TO ASSESS PATIENT; PATIENT DROWSY BUT EASILY AROUSABLE; PATIENT SLIGHTLY DIAPHORETIC AND HIS HANDS NOTED TO HAVE A TREMOR; PATIENT IS ORIENTED TO SELF, PLACE AND DATE; REFUSING BREAKFAST AT THIS TIME; DENIES NEED TO VOID AT THIS TIME; MARCELLE VEST REMOVED PATIENT IS NOT ATTEMPTING OOB AT THIS TIME; PATIENT SAFETY MONITOR PRESENT; DRESSING TO R HIP C/D/I; CALL NELSON AND NEEDS WITHIN REACH; SAFETY MAINTAINED;
--- NOTE | 2017-01-23 13:06 | PN- Orthopedic ---
Subjective Subjective: Pt is much more clear today. Alert and oriented times three Feels like he has been in a "fog" - relates it to the medication. Has ambulated in the hallway with PT and walked laps without any difficulty Pain is well controlled with meds Objective Vital Signs and I&Os Vital Signs Date Time Temp Pulse Resp B/P B/P Pulse O2 O2 Flow FiO2 Mean Ox Delivery Rate 01/23 1417 97.6 55 20 118/50 98 Room Air 01/23 1013 132/78 01/23 1013 132/78 01/23 0625 97.9 72 20 132/78 98 Room Air 01/22 2148 98.3 85 19 95 Room Air Intake & Output 01/23 1600 01/23 0800 01/23 0000 01/22 1600 01/22 0800 01/22 0000 Intake Total 600 100 130 565 Output Total 50 775 1275 200 625 Balance 550 100 -645 -1275 -200 -60 Intake, IV 0 100 10 225 Intake, Oral 600 120 340 Number 0 Bowel Movements Output, Urine 50 775 1275 200 625 Physical Exam: VSS, afebrile General: alert and oriented times three Chest: clear anteriorly bilaterally, RRR Abd: soft, good bs Ext: warm, no edema Wound: looks good Assessment/Plan Assessment/Plan 71yo male s/p R TRAVIS with post op confusion now resolved Ambulated with PT - cleared for discharge either home with assist or to rehab Discussed with case management Will follow up dvt ppx with asa 325mg po bid Core Measures/Miscellaneous Venous Thromboembolism VTE Risk Factors: Age > 40, Surgery VTE Contraindications: No Contraindications VTE Diagnosis: No VTE Type: NONE VTE Confirmed by (Test): NONE Beta Ellis Is Beta Ellis a Home Med? No Antibiotics Is Patient on Antibiotics? No
[2017-01-23 14:17] VITALS: BP 118/50
--- NOTE | 2017-01-23 19:48 | NUR ---
AOX3, RESPONSES APPROPRIATE, CALM AND COOPERATIVE, DENIES HALLUCINATIONS OR AGITATION. NO SIGNS OF DISTRESS NOTED. PAIN REPORTED ONLY WHEN AMBULATING.
[2017-01-23 22:40] VITALS: BP 120/60
[2017-01-24 06:04] VITALS: BP 128/62
--- NOTE | 2017-01-24 08:17 | PN- Orthopedic ---
See Addendum Subjective Subjective: POD #2 s/p right total hip replacement. Resting comfortably in chair. No pain to hip at rest. Worked with PT this morning. Voiding spontaneously. No CP/SOB , N/V, F/C. Objective Vital Signs and I&Os Vital Signs Date Time Temp Pulse Resp B/P B/P Pulse O2 O2 Flow FiO2 Mean Ox Delivery Rate 01/24 0604 98.2 52 20 128/62 94 Room Air 01/23 2240 98.1 59 20 120/60 93 01/23 1417 97.6 55 20 118/50 98 Room Air 01/23 1013 132/78 01/23 1013 132/78 Intake & Output 01/24 1600 01/24 0800 01/24 0000 01/23 1600 01/23 0800 01/23 0000 Intake Total 650 760 600 100 130 Output Total 400 50 775 Balance 250 760 550 100 -645 Intake, IV 0 100 10 Intake, Oral 650 760 600 120 Number 0 Bowel Movements Output, Urine 400 50 775 Physical Exam: Gen: AAOx3 in NAD Cor: S1+S2+ Lungs: CTA jay Abd: soft, NT, ND, +BS x4 Ext: right hip dressing removed. Incision intact with steristrips. Surrounding ecchymosis noted. Minimal tenderness to palpation. Sensation/motor exam grossly intact. Palpable DP pulse jay. Current Medications: Current Medications Sig/Nicole Start time Last Medication Dose Route Stop Time Status Admin Aspirin 325 MG BID 01/20 2200 AC 01/23 PO 2204 Docusate Sodium 100 MG BID 01/20 2200 AC 01/23 PO 2205 Fluoxetine HCl 10 MG DAILY 01/21 1000 AC 01/23 PO 1013 Folic Acid 1 MG DAILY 01/22 1000 AC 01/23 PO 1013 Haloperidol 0.5 MG Q8P PRN 01/22 0830 DC 01/22 IM 1910 Ketorolac 15 MG Q8P PRN 01/20 1630 DC 01/22 Tromethamine IV 01/23 1625 2155 Lisinopril 20 MG DAILY 01/21 1000 AC 01/23 PO 1013 Multivitamins 1 TAB DAILY 01/22 1000 AC 01/23 PO 1013 Olanzapine 5 MG BID PRN 01/22 1000 DC 01/22 PO 2154 Omeprazole 40 MG DAILY AC 01/21 0700 AC 01/24 PO 0514 Ondansetron HCl 4 MG Q6P PRN 01/20 1630 AC IV Polyethylene Glycol 17 GM DAILY 01/21 1000 AC 01/23 PO 1013 Promethazine HCl 12.5 MG Q6P PRN 01/20 1630 AC IV 01/27 1214 Tamsulosin HCl 0.4 MG DAILY 01/21 0715 AC 01/23 PO 1013 Thiamine HCl 100 MG DAILY 01/22 1000 AC 01/23 PO 1013 Results Last 48 Hours of Labs: Laboratory Tests 01/23 0810 Chemistry Sodium (137 - 145 mmol/L) 141 Potassium (3.5 - 5.1 mmol/L) 4.3 Chloride (98 - 107 mmol/L) 104 Carbon Dioxide (22 - 30 mmol/L) 28 Anion Gap (5 - 16) 10 BUN (9 - 20 mg/dL) 18 Creatinine (0.7 - 1.2 mg/dL) 1.1 Estimated GFR (>60 ml/min) > 60 BUN/Creatinine Ratio (7 - 25 %) 16.4 Hematology CBC w Diff NO MAN DIFF REQ WBC (4.8 - 10.8 /CUMM) 6.7 RBC (4.70 - 6.10 /CUMM) 3.94 L Hgb (14.0 - 18.0 G/DL) 11.1 L Hct (42 - 52 %) 33.0 L MCV (80.0 - 94.0 FL) 83.8 MCH (27.0 - 31.0 PG) 28.2 RDW (11.5 - 14.5 %) 14.3 Plt Count (130 - 400 /CUMM) 170 MPV (7.4 - 10.4 FL) 7.4 Gran % (42.2 - 75.2 %) 64.5 Lymphocytes % (20.5 - 51.1 %) 20.6 Monocytes % (1.7 - 9.3 %) 13.2 H Eosinophils % (0 - 5 %) 1.4 Basophils % (0.0 - 2.0 %) 0.3 Absolute Granulocytes (1.4 - 6.5 /CUMM) 4.3 Absolute Lymphocytes (1.2 - 3.4 /CUMM) 1.4 Absolute Monocytes (0.10 - 0.60 /CUMM) 0.9 H Absolute Eosinophils (0.0 - 0.7 /CUMM) 0.1 Absolute Basophils (0.0 - 0.2 /CUMM) 0 PUBS MCHC (33.0 - 37.0 G/DL) 33.6 Assessment/Plan Assessment/Plan A: POD #2 s/p right THR; AVSS. Plan: D/C home today with 24 hour home care services. Continue aspirin therapy. Pain control to continue. Bowel regimen to continue. Core Measures/Miscellaneous Venous Thromboembolism VTE Risk Factors: Age > 40, Surgery VTE Contraindications: No Contraindications VTE Diagnosis: No VTE Type: NONE VTE Confirmed by (Test): NONE Beta Ellis Is Beta Ellis a Home Med? No Antibiotics Is Patient on Antibiotics? No
[2017-01-24 09:03] VITALS: BP 102/64
--- NOTE | 2017-01-24 09:38 | PN- Medicine Consult ---
Assessment/Plan Assessment/Plan Assessment: 71-year-old male with history of hypertension, acid reflux, BPH is status post right hip total replacement postoperative day 4. On evaluation this morning he appears more alert and oriented. It appears delirium has resolving. Plan: Plan Continue home meds upon discharge Avoid narcotics DVT prophylaxis as per surgical team Current Medications Sig/Nicole Start time Last Medication Dose Route Stop Time Status Admin Acetaminophen 1,000 MG Q6H 01/22 0815 DC 01/23 N/A 1 UNIT IV 01/23 0229 0125 Aspirin 325 MG BID 01/20 220 AC 01/22 PO 2203 Docusate Sodium 100 MG BID 01/20 2200 AC 01/22 PO 2204 Fluoxetine HCl 10 MG DAILY 01/21 1000 AC 01/22 PO 0816 Folic Acid 1 MG DAILY 01/22 1000 AC 01/22 PO 1334 Haloperidol 0.5 MG Q8P PRN 01/22 0830 AC 01/22 IM 1910 Ketorolac 15 MG Q8P PRN 01/20 1630 AC 01/22 Tromethamine IV 01/23 1625 2155 Lisinopril 20 MG DAILY 01/21 1000 AC 01/22 PO 0828 Lorazepam 0 Q1P PRN 01/22 1000 DC IV Multivitamins 1 TAB DAILY 01/22 1000 AC 01/22 PO 1334 Olanzapine 5 MG BID PRN 01/22 1000 AC 01/22 PO 2154 Omeprazole 40 MG DAILY AC 01/21 0700 AC 01/22 PO 0548 Ondansetron HCl 4 MG Q6P PRN 01/20 1630 AC IV Polyethylene Glycol 17 GM DAILY 01/21 1000 AC 01/22 PO 0827 Promethazine HCl 12.5 MG Q6P PRN 01/20 1630 AC IV 01/27 1214 Tamsulosin HCl 0.4 MG DAILY 01/21 0715 AC 01/22 PO 0816 Thiamine HCl 100 MG DAILY 01/22 1000 AC 01/22 PO 1334 Zolpidem Tartrate 5 MG AT BEDTIME 01/22 2200 DC 01/22 PO 0109 Laboratory Tests 01/23 0810 Chemistry Sodium (137 - 145 mmol/L) 141 Potassium (3.5 - 5.1 mmol/L) 4.3 Chloride (98 - 107 mmol/L) 104 Carbon Dioxide (22 - 30 mmol/L) 28 Anion Gap (5 - 16) 10 BUN (9 - 20 mg/dL) 18 Creatinine (0.7 - 1.2 mg/dL) 1.1 Estimated GFR (>60 ml/min) > 60 BUN/Creatinine Ratio (7 - 25 %) 16.4 Hematology CBC w Diff NO MAN DIFF REQ WBC (4.8 - 10.8 /CUMM) 6.7 RBC (4.70 - 6.10 /CUMM) 3.94 L Hgb (14.0 - 18.0 G/DL) 11.1 L Hct (42 - 52 %) 33.0 L MCV (80.0 - 94.0 FL) 83.8 MCH (27.0 - 31.0 PG) 28.2 RDW (11.5 - 14.5 %) 14.3 Plt Count (130 - 400 /CUMM) 170 MPV (7.4 - 10.4 FL) 7.4 Gran % (42.2 - 75.2 %) 64.5 Lymphocytes % (20.5 - 51.1 %) 20.6 Monocytes % (1.7 - 9.3 %) 13.2 H Eosinophils % (0 - 5 %) 1.4 Basophils % (0.0 - 2.0 %) 0.3 Absolute Granulocytes (1.4 - 6.5 /CUMM) 4.3 Absolute Lymphocytes (1.2 - 3.4 /CUMM) 1.4 Absolute Monocytes (0.10 - 0.60 /CUMM) 0.9 H Absolute Eosinophils (0.0 - 0.7 /CUMM) 0.1 Absolute Basophils (0.0 - 0.2 /CUMM) 0 PUBS MCHC (33.0 - 37.0 G/DL) 33.6 Vital Signs Date Time Temp Pulse Resp B/P B/P Pulse O2 O2 Flow FiO2 Mean Ox Delivery Rate 01/23 0625 97.9 72 20 132/78 98 Room Air 01/22 2148 98.3 85 19 95 Room Air 01/22 1412 98.5 68 20 182/78 96 Room Air Problem List: 1. Unilateral primary osteoarthritis, right hip 2. Delirium Subjective Subjective: Patient is awake and alert answering questions appropriately. Review of Systems Constitutional: Denies: no symptoms, see HPI, chills, diaphoresis, fever, malaise, weakness, unexplained weight loss. Cardiovascular: Denies: no symptoms, see HPI, chest pain, edema, orthopena, palpitations, peripheral edema, syncope. Respiratory: Denies: no symptoms, see HPI, cough, hemoptysis, orthopnea, short of breath, sputum production, stridor, wheezing. Gastrointestinal: Denies: no symptoms, see HPI, abdominal pain, bloating, constipation, diarrhea, distention, bowel incontinence, melena, nausea, bloody stool, changes in stool, vomiting, steatorrhea. Musculoskeletal: Denies: no symptoms, see HPI, back pain, gout, joint pain, joint swelling, muscle pain, muscle stiffness, neck pain. Skin: Denies: no symptoms, see HPI, cysts, change in skin color, change in hair/nails, dryness, erythema, jaundice, lesions, lymphangitis, lumps, moles, rash. Objective Last 24 Hrs of Vital Signs/I&O Vital Signs Date Time Temp Pulse Resp B/P B/P Pulse O2 O2 Flow FiO2 Mean Ox Delivery Rate 01/24 0903 61 102/64 01/24 0903 61 102/64 01/24 0604 98.2 52 20 128/62 94 Room Air 01/23 2240 98.1 59 20 120/60 93 01/23 1417 97.6 55 20 118/50 98 Room Air 01/23 1013 132/78 01/23 1013 132/78 Intake & Output 01/24 1600 01/24 0800 01/24 0000 Intake Total 650 760 Output Total 400 Balance 250 760 Intake, Oral 650 760 Output, Urine 400 Physical Exam General Appearance: alert, awake Cardiovascular: regular rate/rhythm Respiratory: chest non-tender Abdomen: soft, non-tender Extremities: no edema Current Medications: Current Medications Sig/Nicole Start time Last Medication Dose Route Stop Time Status Admin Aspirin 325 MG BID 01/20 2200 AC 01/24 PO 09 Docusate Sodium 100 MG BID 01/20 2200 AC 01/24 PO 0901 Fluoxetine HCl 10 MG DAILY 01/21 1000 AC 01/24 PO 09 Folic Acid 1 MG DAILY 01/22 1000 AC 01/24 PO 0903 Haloperidol 0.5 MG Q8P PRN 01/22 0830 DC 01/22 IM 1910 Ketorolac 15 MG Q8P PRN 01/20 1630 DC 01/22 Tromethamine IV 01/23 1625 2155 Lisinopril 20 MG DAILY 01/21 1000 AC 01/24 PO 0903 Multivitamins 1 TAB DAILY 01/22 1000 AC 01/24 PO 0901 Olanzapine 5 MG BID PRN 01/22 1000 DC 01/22 PO 2154 Omeprazole 40 MG DAILY AC 01/21 0700 AC 01/24 PO 0514 Ondansetron HCl 4 MG Q6P PRN 01/20 1630 AC IV Polyethylene Glycol 17 GM DAILY 01/21 1000 AC 01/24 PO 0903 Promethazine HCl 12.5 MG Q6P PRN 01/20 1630 AC IV 01/27 1214 Tamsulosin HCl 0.4 MG DAILY 01/21 0715 AC 01/24 PO 0903 Thiamine HCl 100 MG DAILY 01/22 1000 AC 01/24 PO 0901 Results Last 24 Hrs Lab/[place] Results: none
== END 2017-01-24 11:24 | disposition home health service (06) | DRG 470 ==
LOC: SDA 01:47 → 2NB 01:47 → ENRESERV 15:16 → ENTRNSPT 15:59 → 2NB 16:20 → CMPTRNSPT 16:27 → DELTRNSPT 16:40 → ENPENDDIS 01-24 08:22 → 2NB 01-24 11:24
PROVIDERS: Nurse Practitioner; Physician Assistant; ADMIT Orthopaedic Surgery
PROC: 0SR904A Replacement of Right Hip Joint with Ceramic on Polyethylene Synthetic Substitute, Uncemented, Open Approach (ICD-10-PCS; principal; 2017-01-20)
DX: M16.11 Unilateral primary osteoarthritis, right hip (principal); I10 Essential (primary) hypertension; R41.0 Disorientation, unspecified; M25.751 Osteophyte, right hip; N40.0 Benign prostatic hyperplasia without lower urinary tract symptoms; Z87.891 Personal history of nicotine dependence; F41.9 Anxiety disorder, unspecified; K21.9 Gastro-esophageal reflux disease without esophagitis
CPT/HCPCS: 2NSBP; 36415; 73502-RT; 82436; 93005; 93010; 97110-GO; 97116-GO; 97161-GP; 97530-GO; J0131; J0690; J0735; J1630; J2405; J2550; J3490

== ENCOUNTER 2018-01-27 12:58 | Emergency (ER) | payer OTHER, MEDICARE ==
[~2018-01-27] VITALS: Ht 175.3 cm; Wt 72.6 kg
[~2018-01-27 12:58] MED LIST changes: +ASPIRIN EC325 M2 PO; +COLACE100 M1 PO; +DILAUDID2 M1 PO; +FLOMAX0.4 M1 PO; -FLUOXETINE HCL10 M2 PO; +FLUOXETINE HCL40 M1 PO; +MIRALAX17 G1 PO; +MS CONTIN15 M2 PO; +TYLENOL EXTRA500 M2 PO
--- NOTE | 2018-01-27 13:12 | ED PSYCHIATRIC COMPLAINT ---
History of Present Illness General Chief Complaint: General Adult Stated Complaint: BIBA FOR MED EVAL Source: patient Exam Limitations: no limitations Vital Signs & Intake/Output Vital Signs & Intake/Output Vital Signs Date Time Temp Pulse Resp B/P B/P Pulse O2 O2 Flow FiO2 Mean Ox Delivery Rate 01/27 1509 98.6 82 18 142/74 96 Room Air 01/27 1305 98.8 54 18 137/63 95 Room Air Allergies Coded Allergies: No Known Allergies (01/10/17) Reconcile Medications Amlodipine Besylate 5 MG TABLET 1 TAB PO DAILY HEART (Reported) Carbidopa/Levodopa (Sinemet 25-100 MG Tablet) 25 MG-100 MG TABLET 1.5 TAB PO TID PARKINSONS (Reported) Fluoxetine HCl 40 MG CAPSULE 1 CAP PO QAM ANXIETY (Reported) Lisinopril 20 MG TABLET 1 TAB PO DAILY HTN (Reported) Triage Note: BIBA FROM ASSISTED LIVING, PER STAFF PATIENT HAS HAD DIFFICULTY SLEEPING AND HAS COMPLAINTS OF ANXIETY AND DEPRESSION WITH INCREASE IN CONFUSION. PATIENT ARRIVES, ALERT, ORIENTED, SPEECH CLEAR, DENIES PAIN OR DISCOMFORT. PATIENT DENIES SI/HI. PATIENT STATES "LIFE IS TOO GOOD TO BE OVER, I JUST FEEL LONELY AND A LITTLE SAD, EVERYONE IS GONE AND I MISS THEM". VITALS OBTAINED. AWAITING PROVIDER EVAL. Triage Nurses Notes Reviewed? yes Onset: Abrupt Duration: better, gone now HPI: Patient is a 72-year-old male with a past medical history of anxiety Parkinson's hypertension who presents emergency room brought in the ambulance with caregiver for concerns of anxiety and depression Patient and caregiver state that he recently moved into a new residence in which she lives in assisted care where he has also lost his in the past year and feels depressed and which she states that Davian night he had a bad dream in which she states that people were robbing him in which today he had thoughts of this bad dream earlier this morning and the caregiver saw patient in the morning he was in his normal state of health and then suddenly patient started trying to call family members on the phone due to the thoughts of the bad dream. This symptom happened after he took his medications Patient currently denies any suicidal or homicidal ideation denies any heat or chills headache blurred vision neck pain chest pain arm pain jaw pain. Denies any alcohol or drug use. Caregiver states the patient is acting appropriately denies any signs of slurred speech confusion facial droop extremity weakness. (Tom Ellis) Past History Travel History Traveled to [place] past 21 day No Medical History Any Pertinent Medical History? see below for history Neurological: NONE EENT: NONE Cardiovascular: hypertension Respiratory: NONE Gastrointestinal: NONE Hepatic: NONE Renal: NONE Musculoskeletal: osteoarthritis Psychiatric: anxiety Endocrine: NONE Blood Disorders: NONE Cancer(s): NONE UTILITY WORKER/Reproductive: NONE History of MRSA: No History of VRE: No History of CDIFF: No Surgical History Surgical History: BACK SURGERY Psychosocial History Who do you live with Patient/Self Services at Home None What is your primary language Macedonian Family History Hx Contributory? No (Tom Ellis) Review of Systems Review of Systems Constitutional: Reports: no symptoms. EENTM: Reports: no symptoms. Respiratory: Reports: no symptoms. Cardiovascular: Reports: no symptoms. GI: Reports: no symptoms. Genitourinary: Reports: no symptoms. Musculoskeletal: Reports: no symptoms. Skin: Reports: no symptoms. Neurological/Psychological: Reports: see HPI, anxiety. Hematologic/Endocrine: Reports: no symptoms. Immunologic/Allergic: Reports: no symptoms. All Other Systems: Reviewed and Negative (Tom Ellis) Physical Exam Physical Exam General Appearance: no apparent distress, alert, comfortable Head: atraumatic Eyes: Bilateral: normal appearance, PERRL, EOMI. Ears, Nose, Throat: normal pharynx, normal ENT inspection, hearing grossly normal Neck: normal inspection, supple Respiratory: normal breath sounds, chest non-tender, no respiratory distress Cardiovascular: edema Neurological/Psychiatric: no motor/sensory deficits, awake, alert, normal mood/ affect, calm, manager proposal II-XII nml as tested Appearance/Memory/Insight: appropriate appearance, appropriate insight Behavoir/Eye Contact/Speech: cooperative, normal speech, good eye contact Thoughts/Hallucinations: normal thought pattern, no apparent hallucination Skin: intact, normal color, warm/dry Comments: Patient is alert and oriented to year place and age SAD PERSONS Done? patient not suicidal (Tom Ellis) Progress Differential Diagnosis: dementia, drug intoxication, drug overdose, drug withdrawal, electrolyte abnormality, encephalitis, hypoglycemia, hypothyroidism, IC hem/mass/tumor, meningitis Plan of Care: Orders Procedure Date/time Status URINALYSIS 01/27 1349 Complete COMPREHENSIVE METABOLIC PANEL 01/27 1349 Complete CBC WITHOUT DIFFERENTIAL 01/27 1349 Complete Laboratory Tests 01/27/18 1600: Urine Color YEL, Urine Clarity CLEAR, Urine pH 6.0, Ur Specific [place] 1.025, Urine Protein TRACE H, Urine Ketones NEG, Urine Nitrite NEG, Urine Bilirubin NEG, Urine Urobilinogen 0.2, Ur Leukocyte Esterase NEG, Ur Microscopic SEDIMENT EXAMINED, Micro UA Comment NEGATIVE MICROSCOPIC, Urine Hemoglobin NEG, Urine Glucose NEG 01/27/18 1438: Anion Gap 12, Estimated GFR 60, BUN/Creatinine Ratio 28.3 H, Glucose 112 H, Calcium 9.4, Total Bilirubin 0.7, AST 19, ALT 21, Alkaline Phosphatase 91, Total Protein 6.4, Albumin 4.1, Globulin 2.3, Albumin/Globulin Ratio 1.8, CBC w Diff NO MAN DIFF REQ, RBC 4.90, MCV 84.3, MCH 28.9, MCHC 34.3, RDW 15.4 H, MPV 6.6 L, Gran % 69.5, Lymphocytes % 18.6 L, Monocytes % 10.4 H, Eosinophils % 1.1, Basophils % 0.4, Absolute Granulocytes 5.4, Absolute Lymphocytes 1.4, Absolute Monocytes 0.8 H, Absolute Eosinophils 0.1, Absolute Basophils 0 Patient on initial presentation is in no apparent distress vital signs were unremarkable following all commands appropriately and NIH stroke scale [address] Julian the patient did present to the emergency room after I evaluated the patient Dr. Julian was informed of patient's clinical presentation Minimal suspicion of CVA Patient states that he just had thoughts of his bad dream earlier today where he became suddenly anxious and and has now resolved Patient denies any suicide or homicide ideation Patient had unremarkable labs and urinalysis patient was following all commands appropriately patient had normal steady gait with a walker Patient and caregiver was advised to follow-up with psychiatric providerhe was given contact information Upon discharge patient looks well no apparent distress and will comply with discharge instructions and had no questions Diagnostic Imaging: Viewed by Me: CT Scan. Radiology Impression: no acute abnormality Comments: PATIENT: FABIANO JASSO PRESENT AGE: 72 PATIENT ACCOUNT NO: [id number] : 45 LOCATION: [facility] ORDERING PHYSICIAN: Tom PAVON SERVICE DATE: 01/27/18 EXAM TYPE: CAT - CT HEAD WO IV CONTRAST EXAMINATION: CT HEAD WITHOUT CONTRAST CLINICAL INFORMATION: AMS earlier today. COMPARISON: None. TECHNIQUE: Contiguous axial imaging was performed from the skull base to vertex without intravenous administration of contrast. DLP: 616 mGy-cm. FINDINGS: There is no intracranial hemorrhage, large infarction, or mass lesion. There is no extra-axial collection. There is mild diffuse brain parenchymal volume loss. The ventricles are normal in size without evidence of hydrocephalus. The visualized paranasal sinuses and mastoid air cells are clear. IMPRESSION: No acute intracranial abnormality. DICTATED BY: Jess aCstano MD DATE/TIME DICTATED:01/27/181516 WIRE STITCHER:ZEB (Tom Ellis) Departure Departure Disposition: HOME OR SELF CARE Condition: Stable Clinical Impression Primary Impression: Anxiety Referrals: Patient Has No Primary Care Dr (PCP/Family) Additional Instructions: As discussed continue home medications as directed, if symptoms worsen or if you develop any new concerning symptom return to emergency room. Tomorrow please follow-up with [facility] psychiatric outpatient provider to make an appointment. Departure Forms: Customer Survey General Discharge Information (Tom Ellis) PA/LABORATORY COORDINATOR Co-Sign Statement Statement: ED Attending supervision documentation- [] I saw and evaluated the patient. I have also reviewed all the pertinent lab results and diagnostic results. I agree with the findings and the plan of care as documented in the PA's/LABORATORY COORDINATOR's documentation. [x] I have reviewed the ED Record and agree with the PA's/LABORATORY COORDINATOR's documentation. x Additions or exceptions (if any) to the PAs/LABORATORY COORDINATOR's note and plan are summarized below: I was informed about this patient by the physician admissions assistant. Unfortunately I was delayed by a critical patient and by the time I went to evaluate the patient prior to the planned discharge, he had left. The story seemed consistent with the PA chart, and he will follow-up with his primary physician this week. (Jean Carlos Wilson DO)
[2018-01-27] MEDS ORDERED: AMLODIPINE BESYL5 M1 PO (13:15)
[2018-01-27] MEDS ORDERED: SINEMET 25-1001 EACH PO (13:16)
[2018-01-27 14:47] LABS: ABSOLUTE BASOPHIL COUNT 0 /CUMM (0.0-0.2); ABSOLUTE EOSINOPHIL COUNT 0.1 /CUMM (0.0-0.7); ABSOLUTE GRANULOCYTE CT 5.4 /CUMM (1.4-6.5); ABSOLUTE LYMPH COUNT 1.4 /CUMM (1.2-3.4); ABSOLUTE MONOCYTE COUNT 0.8 /CUMM (0.10-0.60); BASOPHIL % 0.4 % (0.0-2.0); EOSINOPHIL % 1.1 % (0-5); GRANULOCYTE % 69.5 % (42.2-75.2); HEMATOCRIT 41.3 % (42-52); MEAN CORPUSCULAR HGB 28.9 PG (27.0-31.0); MEAN CORPUSCULAR HGB CONC 34.3 G/DL (33.0-37.0); MEAN CORPUSCULAR VOLUME 84.3 FL (80.0-94.0); MEAN PLATELET VOLUME 6.6 FL (7.4-10.4); PLATELET COUNT 239 /CUMM (130-400); RBC DISTRIBUTION WIDTH 15.4 % (11.5-14.5); WHITE BLOOD CELL COUNT 7.8 /CUMM (4.8-10.8)
[2018-01-27 15:09] VITALS: BP 142/74
--- NOTE | 2018-01-27 15:24 | CT SCAN REPORT ---
EXAMINATION: CT HEAD WITHOUT CONTRAST CLINICAL INFORMATION: AMS earlier today. COMPARISON: None. TECHNIQUE: Contiguous axial imaging was performed from the skull base to vertex without intravenous administration of contrast. DLP: 616 mGy-cm. FINDINGS: There is no intracranial hemorrhage, large infarction, or mass lesion. There is no extra-axial collection. There is mild diffuse brain parenchymal volume loss. The ventricles are normal in size without evidence of hydrocephalus. The visualized paranasal sinuses and mastoid air cells are clear. IMPRESSION: No acute intracranial abnormality.
== END 2018-01-27 16:55 ==
LOC: ERH 12:58
PROVIDERS: Physician Assistant
DX: F41.9 Anxiety disorder, unspecified (principal)
CPT/HCPCS: 81001